=== PATIENT | female | born 1940 | race Hispanic/Latino ===

== ENCOUNTER 2018-09-25 13:02 | Inpatient (IN) | payer MEDICARE ==
[~2018-09-25 13:02] MED LIST: Dexamethasone 20 MG/5 ML VIAL ONE; Esmolol 100 MG/10 ML VIAL ONE; Glycopyrrolate 0.2 MG/ML 5 ML SYRINGE ONE; Ketorolac Tromethamine 30 MG/ML VIAL ONE; Lidocaine 1% PF 5 ML VIAL ONE; Ondansetron PF 4 MG/2 ML Vial ONE; PHENYLEPHRINE-NS 100 MCG/ML 10 ML SYRINGE ONE; PROPOFOL 200 MG/20 ML VIAL ONE; Rocuronium Bromide 10 MG/ML (10ML VIAL) ONE; Succinylcholine Chloride 20 MG/ML 10 ml SYRINGE FS ONE; ePHEDrine 50 MG/ML VIAL ONE
--- NOTE | 2018-09-25 18:32 | HP ---
HISTORY OF PRESENT ILLNESS: Aixa Teixeira is a 77-year-old female, who lives with her in [place]. The patient for the past 2 days has experienced abdominal distention, nausea, vomiting, _obstipation and no flatus. Her abdomen became distended and she had somewhat pains and cramps that she presented to [facility] today, where she underwent evaluation and revealing hemoglobin of 12 and white count 9.8. Sodium 136, potassium 4.1, BUN 16, and creatinine 1.05. Liver function tests normal. She underwent a CAT scan of the abdomen and pelvis , revealing diffuse lymphadenopathy 1.3 to 1.6 cm with large transverse colon mass with proximal colonic dilatation up to 10 to 12 cm. She was evaluated by Findings were suspicious for an apple-core malignancy in the transverse colon with associated extramural spread and lymphadenopathy. The patient does have a history of lymphoma, having been treated in the past, but has not seen her oncologist in more than 2 to 3 years. She was told she is in remission. She reports having had a colonoscopy 5 years ago that was normal. She is otherwise healthy. In treating her lymphoma, she underwent a cardiac stress test many years ago that was normal. She is asymptomatic from a cardiac standpoint. The patient is a retired secretary administrative assistant in [employer] and she lives in [place] as noted above. MEDICATIONS: Levothyroxine 112 mcg a day. ALLERGIES: TRAMADOL AND PENICILLIN, RASH. SOCIAL HISTORY: Alcohol and tobacco, none. PAST SURGICAL HISTORY: Hemithyroidectomy for benign disease, hysterectomy without oophorectomy, tonsillectomy, colonoscopy 5 years ago, MediPort placement and removal right and left side. PAST MEDICAL HISTORY: Treatment for lymphoma in 1997 diagnosed, remission since 2003. Last saw her oncologist more than 2 years ago, not since. REVIEW OF SYSTEMS: 10-point noncontributory. PHYSICAL EXAMINATION: VITAL SIGNS: Weight 53 kg, blood pressure 137/70, respirations 16, temperature 98.3 degrees, pulse 110. HEAD, EARS, EYES, NOSE, AND THROAT: Unremarkable. LUNGS: Clear to auscultation. CARDIAC: Regular rate and rhythm. No murmur or gallop. ABDOMEN: Soft, mild tenderness, distention, tympany. No rebound. No peritoneal signs. Hyperactive bowel sounds. EXTREMITIES: Unremarkable. No ankle edema. LYMPHATICS: No lymphadenopathy at neck, axillae, or groins. BREASTS: Without masses. AXILLA: Without masses. EXTREMITIES: Without edema. LABORATORY DATA: As noted above. CEA level obtained this hospitalization 39. ASSESSMENT AND PLAN: 1. Review of her CAT scan reveals findings consistent with the radiology report. She has a mid transverse colon obstruction with a large mass. We would recommend laparotomy, resection, and possible ileostomy, although unlikely, we will plan anastomosis. Risks of infection, bleeding, reoperation, anastomotic leakage were discussed. She understands the risks and benefits and consents. 2. History of lymphoma. 3. Colonoscopy 5 years ago. 4. Elevated CEA level. Job ID: [id number] [facility]
[2018-09-25] MEDS ORDERED: Fentanyl 250 MCG/5 ML VIAL ONE (19:34)
[2018-09-25] MEDS ORDERED: metroNIDAZOLE 500 MG/100 ML BAG ONE (19:47)
[2018-09-25] MEDS ORDERED: Ketorolac Tromethamine 30 MG/ML VIAL ONE (19:47)
[2018-09-25] MEDS ORDERED: Levofloxacin 500 mg/D5W 100 ml Premix Bag ONE (19:47)
[2018-09-25] MEDS ORDERED: hydrALAZINE 20 MG/ML VIAL SLOW IVP PRN (21:40)
[2018-09-25] MEDS ORDERED: Ondansetron PF 4 MG/2 ML Vial IVP PRN ×2 (21:40→21:51)
[2018-09-25] MEDS ORDERED: Promethazine HCl 25 MG/ML VIAL ONE (21:46)
[2018-09-25] MEDS ORDERED: Zolpidem Tartrate 5 MG TAB PO PRN (21:51)
[2018-09-25] MEDS ORDERED: diphenhydrAMINE 25 MG CAP PO PRN (21:51)
[2018-09-25] MEDS ORDERED: diphenhydrAMINE 50 MG/ML VIAL IVP PRN (21:51)
[2018-09-25] MEDS ORDERED: Naloxone HCl 0.4 mg/ml Vial IV PRN (21:51)
[2018-09-25] MEDS ORDERED: fentaNYL Citrate/PF 2,000 MCG in Sodium Chloride 0.9% 60 ML IV PRN (21:51)
[2018-09-25] MEDS ORDERED: Ondansetron HCl/PF 4 MG/2 ML Vial IVP PRN (21:51)
[2018-09-25] MEDS ORDERED: diphenhydrAMINE 50 MG/ML VIAL IM PRN (21:51)
[2018-09-25] MEDS ORDERED: Promethazine HCl 25 MG/ML VIAL SLOW IVP PRN (21:51)
[2018-09-25] MEDS ORDERED: Promethazine HCl 25 MG/ML VIAL IM PRN ×2 (21:51)
[2018-09-25] MEDS ORDERED: Ketorolac Tromethamine 30 MG/ML VIAL IVP PRN (21:51)
[2018-09-25] MEDS ORDERED: Communication Order-Pharmacy FS SCH (22:00)
[2018-09-25] MEDS ORDERED: Scopolamine 1.5 mg/72 hour Patch TD SCH (22:00)
[2018-09-25] MEDS: Acetaminophen 1,000 MG in Premix Bag 1 BAG IVPB SCH (23:45)
[2018-09-25] MEDS: Ketorolac Tromethamine 30 MG/ML VIAL IVP SCH (23:46)
[2018-09-25] MEDS: D5 1/2 NS w/20 mEq KCL 1,000 ML IV SCH (23:46)
[2018-09-26 00:35] VITALS: BMI 19.8
--- NOTE | 2018-09-26 02:19 | OP ---
DATE OF PROCEDURE: 09/25/2018 PREOPERATIVE DIAGNOSES: Obstructing malignant cancer, mid transverse colon with lyn metastasis, history of lymphoma, elevated CEA level. POSTOPERATIVE DIAGNOSES: Obstructing malignant cancer, mid transverse colon with lyn metastasis, history of lymphoma, elevated CEA level. PROCEDURES PERFORMED: Exploratory laparotomy, extended right colon resection with primary ileo-distal transverse colon anastomosis, Stapler technique, lyn metastasis in the middle colic and extended tumor mass in the omentum, adherent to T4. ANESTHESIA: General. ESTIMATED BLOOD LOSS: 200 mL. DESCRIPTION OF PROCEDURE: The patient was taken to the operating room where under general anesthesia, abdomen was prepared with ChloraPrep and draped in routine fashion. Tavarez catheter was placed at the beginning of procedure and left in place. Midline incision was made and carried down through the skin and subcutaneous tissue about the midline. There was an umbilical hernia, which was taken down through the hernia sac and omentum. Right colon was mobilized as well as the cecum and terminal ileum using cautery. The right colon was markedly dilated and there were some hemorrhagic ischemic changes in the cecum. There was no perforation. There was free fluid in the abdominal cavity from the obstructive process. There was a large tumor mass in the mid transverse colon adherent to adjacent omentum. Adjacent omentum resected en bloc using the LigaSure to free this from the gastrocolic ligament leaving the attached omentum adherent to the tumor mass. Right colon was mobilized. The terminal ileum mobilized. The terminal ileum at approximately 8 cm from the ileocecal valve was divided with a SALEEM stapler. Mesentery divided with a LigaSure down to the ileocolic pedicle, which was divided with a clamp and ligated with 2-0 silk tie and the other end divided with the LigaSure. Serial dissection cephalad, kept the duodenum free of harm as it was mobilized. The hepatic flexure was mobilized, freeing it from the gallbladder. Once this mesentery was divided with the LigaSure up to the middle colic vessels, there was adjacent lyn tissue. This was carefully dissected and nodes freed and the pedicle clamped with a clamp and ligated with 2-0 silk ties and the transverse colon removed after dividing the transverse colon beyond the tumor mass and the distal half of the transverse colon with a SALEEM stapler. The ileocolic anastomosis created with 4 fires of SALEEM blue load stapler. Mesenteric defect was closed with 3-0 silk and anastomosis palpated. Good hemostasis noted. Abdominal cavity irrigated. Gloves and gowns were changed after the anastomosis and the abdominal wall protected during the resection. Sponge and instrument counts were correct and no obvious residual tumor mass noted except some firmness in the retroperitoneum. The Seprafilm was applied between the viscera and the abdominal wall, and the fascia approximated with #2 PDS. Skin and subcutaneous tissues irrigated. Skin approximated with sebas and Prevena dressing applied. Job ID: [id number]
[2018-09-26] MEDS: Ketorolac Tromethamine 30 MG/ML VIAL IVP SCH ×3 (05:27→18:08)
[2018-09-26] MEDS: Acetaminophen 1,000 MG in Premix Bag 1 BAG IVPB SCH ×3 (05:27→18:09)
[2018-09-26 05:28] LABS: #Monocytes 1.3 thou/uL (0.11-0.59); #Neutrophils 13.2 thou/uL (1.40-6.50); %Lymphocytes 6.3 % (21.0-51.0); %Monocytes 8.5 % (0.0-10.0); %Neutrophils 85.1 % (42.0-75.0); Hemoglobin 9.9 g/dL (12.0-16.0); Mean Corpuscular HGB CONC 31.8 g/dL (32.0-36.0); Mean Corpuscular Hemoglobin 27.8 pg (27.0-31.0); Mean Corpuscular Volume 87.3 fL (78.0-98.0); Mean Platelet Volume 7.9 fL (7.4-10.4); Platelet Count 257 thou/uL (130-400); RBC Distribution Width 13.6 % (11.5-14.5); Red Blood Cell (RBC) Count 3.55 mill/uL (4.20-5.40); White Blood Cell (WBC) Count 15.5 thou/uL (4.8-10.8)
[2018-09-26 05:48] LABS: Anion Gap 11 mmol/L (10-20); BUN (Urea Nitrogen) 21 mg/dL (9.8-20.1); Calc. Creatinine Clearance 37 mL/min (70-130); Calcium 7.6 mg/dL (7.8-10.44); Carbon Dioxide 24 mmol/L (23-31); Chloride 104 mmol/L (98-107); Estimated GFR-MDRD 49; Glucose 198 mg/dL (83-110); Potassium 5.1 mmol/L (3.5-5.1); Sodium 134 mmol/L (136-145)
[2018-09-26] MEDS: Famotidine 20 MG TAB PO SCH ×2 (08:55→20:57)
[2018-09-26] MEDS ORDERED: Famotidine/PF 20 mg/2ml Vial SLOW IVP SCH (09:00)
[2018-09-26] MEDS: D5 1/2 NS w/20 mEq KCL 1,000 ML IV SCH (11:00)
[2018-09-26] MEDS ORDERED: D5 1/2 NS w/20 mEq KCL 1,000 ML IV SCH (14:06)
--- NOTE | 2018-09-26 14:20 | PRG ---
DATE OF SERVICE: 09/26/2018 SUBJECTIVE: Ms. Teixeira is doing well today. She has not had any nausea or vomiting. She is tolerating clear liquids. OBJECTIVE: VITAL SIGNS: Temperature 98 degrees, pulse 75, respiratory rate 20, and blood pressure 109/70. LUNGS: Clear to auscultation. CARDIAC: Regular rate and rhythm without murmur, rub, or gallop. ABDOMEN: Soft, nontender. Surgical wounds look good. Prevena suction device in place over the laparotomy incision. Kihei intact. Skin closed. LABORATORY DATA: This morning, her white count is 15, hemoglobin 9.9. Sodium 134, potassium 5.1, BUN 21, and creatinine 1.08. Tavarez has been removed. She is due to void. ASSESSMENT AND PLAN: T4 transverse colon cancer, obstructive, status post right colectomy with anastomosis. She will slowly advance her diet to full liquids today, regular diet tomorrow. If she is doing well, she could be discharged home over the weekend. Prevena dressing can be removed at the time of discharge. She should follow up in my office next week to discuss Pathology report and we will arrange Oncology appointment on the same day of that visit. Dr. Chew is covering the weekend. The patient's sister and brother were present and findings intraoperatively and preoperative CEA level of 39 discussed with the family. They are aware of the situation. Job ID: [id number]
[2018-09-26] MEDS ORDERED: Enoxaparin Sodium 40 MG/0.4 ML SYRINGE SC SCH (21:00)
[2018-09-27] MEDS: Ketorolac Tromethamine 30 MG/ML VIAL IVP SCH ×3 (00:38→11:58)
[2018-09-27] MEDS ORDERED: Levothyroxine Sodium 100 MCG TAB PO SCH (06:00)
[2018-09-27] MEDS: Acetaminophen/Codeine 30-300mg Tablet PO PRN ×2 (06:12→11:59)
[2018-09-27] MEDS ORDERED: Acetaminophen/Codeine 30-300mg Tablet PO PRN (07:00)
[2018-09-27] MEDS ORDERED: Ibuprofen 600 MG TAB PO PRN (07:00)
[2018-09-27] MEDS: Famotidine 20 MG TAB PO SCH (08:55)
[2018-09-27] MEDS ORDERED: Polyethylene Glycol 3350 17 GM Packet PO SCH (09:00)
--- NOTE | 2018-09-27 09:01 | DIS ---
DATE OF ADMISSION: 09/25/2018 DATE OF DISCHARGE: 09/27/2018 ADMITTING DIAGNOSIS: Colon mass. DISCHARGE DIAGNOSIS: Colon mass. PROCEDURES: Partial colectomy and anastomosis by Leland without complication. CONDITION ON DISCHARGE: Improved. STAFF: Natalio Ha MD HOSPITAL COURSE: On postop day 2, the patient is doing well with tolerating the full liquid diet. She is ambulatory. She has a mild cough, but she has been afebrile. Vital signs are stable. On her abdominal exam, her superficial wound VAC is in place. There is no evidence of wound infection. ASSESSMENT: Doing well, status post extended right colectomy for colon mass. PLAN: Discharged home today. Follow up with Dr. Ha next week. Prescriptions for Tylenol No. 3 is already on the chart. Job ID: [id number]
[2018-09-27] MEDS ORDERED: Diabetic Tussin 200 MG/10 ML UDCUP PO PRN (09:36)
[2018-09-27 12:06] VITALS: BP 100/52; TEMP 97.9
== END 2018-09-27 15:11 | disposition home or self-care (01) | DRG 330 ==
LOC: ERS 13:02 → SDC/OP 19:05 → SURG A 22:18
PROVIDERS: ADMIT Specialist; ATTEND Specialist
PROC: 0DTF0ZZ Resection of Right Large Intestine, Open Approach (ICD-10-PCS; principal; 2018-09-25)
PROC: 07BB0ZX Excision of Mesenteric Lymphatic, Open Approach, Diagnostic (ICD-10-PCS; 2018-09-25)
DX: C18.4 Malignant neoplasm of transverse colon (principal); C77.2 Secondary and unspecified malignant neoplasm of intra-abdominal lymph nodes; Z85.72 Personal history of non-Hodgkin lymphomas; R97.0 Elevated carcinoembryonic antigen [CEA]; K42.9 Umbilical hernia without obstruction or gangrene; E03.9 Hypothyroidism, unspecified; Z88.0 Allergy status to penicillin; Z88.8 Allergy status to other drugs, medicaments and biological substances
CPT/HCPCS: 36415; 36416; 80048; 82378; 85025; 88309; 93005; 96360; 96361; J0131; J1100; J1650; J1885; J1956; J2001; J2405; J2550; J2704; J3010; J3490; J7050

== ENCOUNTER 2018-10-16 09:26 | Outpatient (CLI) | payer MEDICARE ==
--- NOTE | 2018-10-16 11:26 | PET ---
Exam: PET CT skull to mid thigh COMPARISON: CT abdomen/pelvis 09/25/2018 HISTORY: Colon cancer TECHNIQUE: A PET/CT was performed from the skull to the mid thigh after administration of 12.5 millic uries of F-18 FDG. Evaluation was performed on a [employer] workstation. FINDINGS: NECK: There is a focal area of hypermetabolic activity in the left lobe of the thyroid without CT cor relate. Max SUV value is 3.6. There is a metabolic lymph node in the left paratracheal region just in ferior to the left thyroid lobe with a maximum SUV value of 2.3. CHEST: There are normal-sized metabolic left axillary lymph nodes with a maximum SUV value of 1.7. No areas of intrathoracic hypermetabolic activity ABDOMEN/PELVIS: No areas of hypermetabolic activity SKELETON: No areas of hypermetabolic activity CT images used for attenuation correction show post surgical changes from right hemicolectomy.. Ather osclerotic calcification are seen in the aorta. IMPRESSION: 1. There is no evidence of intra-abdominal/pelvic metastatic disease or residual disease 2. Hypermetabolic activity is seen in the left thyroid lobe. A nonemergent thyroid ultrasound is leonor mmended for further evaluation. 3. Nonspecific metabolic but not hypermetabolic activity in a left paratracheal lymph node and left a xillary lymph nodes.
== END 2018-10-16 09:27 | disposition home or self-care (01) ==
LOC: PET 09:26
PROVIDERS: ATTEND Internal Medicine Hematology & Oncology
DX: C18.9 Malignant neoplasm of colon, unspecified (principal); R93.2 Abnormal findings on diagnostic imaging of liver and biliary tract
CPT/HCPCS: 78815; A9552

== ENCOUNTER 2018-10-28 10:29 | Day surgery (SDC) | payer MEDICARE ==
[2018-10-27 13:54] VITALS: BMI 19.7
[2018-10-28] MEDS ORDERED: Lidocaine 2% PF 5 ML VIAL ONE (12:14)
[2018-10-28] MEDS ORDERED: Bupivacaine HCl 0.5%/Epinephrine 1:200,000/PF 30 ml Vial ONE (12:14)
[2018-10-28] MEDS ORDERED: Levofloxacin 500 mg/D5W 100 ml Premix Bag ONE (12:16)
[2018-10-28] MEDS ORDERED: Fentanyl 100 MCG/2 ML VIAL ONE (12:41)
[2018-10-28] MEDS ORDERED: Sodium Chloride 0.9% 20 ML ONE (13:03)
[2018-10-28] MEDS ORDERED: Lidocaine 1% PF 5 ML VIAL ONE (13:44)
[2018-10-28] MEDS ORDERED: PROPOFOL 200 MG/20 ML VIAL ONE (13:44)
--- NOTE | 2018-10-28 13:44 | RAD ---
Exam: Chest one view HISTORY:Status post Mediport placement Comparison: 09/25/2018 FINDINGS: Cardiac silhouette: Normal Pulmonary vessels: Normal. Costophrenic angles: Clear Aorta: Atherosclerosis and slight elongation LUNGS: Patchy interstitial opacities with a more focal consolidation in the left lower lobe, obscurin g the left hemidiaphragm. Right-sided Mediport catheter with the distal tip projecting over the expected region of the superior vena cava. Pneumothorax: None Osseous abnormalities: None IMPRESSION: 1. Multifocal interstitial opacities with a more focal alveolar opacity in the left lung base. 2. No pneumothorax. Mediport catheter as described above.
--- NOTE | 2018-10-28 17:01 | OP ---
DATE OF PROCEDURE: 10/28/2018 PREOPERATIVE DIAGNOSES: Metastatic colon cancer, needle chemotherapy, antineoplastic access. POSTOPERATIVE DIAGNOSES: Metastatic colon cancer, needle chemotherapy, antineoplastic access. PROCEDURE PERFORMED: Right subclavian vein low-profile MediPort, fluoroscopy used. ANESTHESIA: TIVA, local of 0.5% Marcaine with epinephrine 30 mL mixed with 2% Xylocaine 10 mL. DESCRIPTION OF PROCEDURE: The patient was taken to the operating room where under intravenous sedation, the chest and neck were prepared with ChloraPrep and draped in routine fashion. Through the old scar, right chest trocar catheter was introduced, cannulating the subclavian vein, J-wire threaded, trocar catheter removed. Skin site was enlarged sharply and carried down to the skin and subcutaneous tissue. Subcutaneous pocket was created with blunt and sharp dissection using cautery for hemostasis. Dilator and Peel-Away sheath placed with J-wire in superior vena cava. Dilator and J-wire were removed. Catheter was placed through the Peel-Away sheath. Peel-Away sheath was removed. Catheter was tailored to length with the tip in the superior vena cava. Catheter connected to the MediPort with the connecting device. MediPort was placed in subcutaneous pocket, secured with 2 interrupted sutures of 3-0 Prolene, and subcutaneous tissue was approximated with 3-0 Monocryl, skin with subdermal 4-0 Monocryl, and fluoroscopic final images revealed good port and line placement. MediPort access with a Patel needle, percutaneously aspirated blood and flushed with heparinized saline solution. The patient tolerated the procedure well. Job ID: [id number]
== END 2018-10-28 14:10 | disposition home or self-care (01) ==
LOC: SDC 10:29
PROVIDERS: ATTEND Specialist
PROC: 05H533Z Insertion of Infusion Device into Right Subclavian Vein, Percutaneous Approach (ICD-10-PCS; principal; 2018-10-28)
PROC: B5161ZA Fluoroscopy of Right Subclavian Vein using Low Osmolar Contrast, Guidance (ICD-10-PCS; 2018-10-28)
DX: C18.2 Malignant neoplasm of ascending colon (principal); Z88.0 Allergy status to penicillin; Z88.8 Allergy status to other drugs, medicaments and biological substances; Z79.899 Other long term (current) drug therapy; Z85.79 Personal history of other malignant neoplasms of lymphoid, hematopoietic and related tissues
CPT/HCPCS: 36582; 71045; C1788; J0670; J1642; J1956; J2001; J2704; J3010

== ENCOUNTER 2018-11-24 09:37 | Day surgery (SDC) | payer MEDICARE ==
[2018-11-24] MEDS ORDERED: Sodium Chloride 0.9% 40 ML ONE (09:47)
[2018-11-24 09:59] VITALS: BP 133/66; TEMP 98.8
[2018-11-24] MEDS ORDERED: WATER IVPB SCH ×3 (10:15→10:30)
[2018-11-24] MEDS ORDERED: DEXAMETHASONE IVPB SCH (10:15)
[2018-11-24] MEDS ORDERED: ONDANSETRON HCL IVPB SCH (10:15)
[2018-11-24] MEDS ORDERED: LEUCOVORIN CALCIUM IVPB SCH (10:15)
[2018-11-24] MEDS ORDERED: OXALIPLATIN IVPB SCH (10:15)
[2018-11-24] MEDS ORDERED: SODIUM CHLORIDE 0.9% IVPB SCH ×2 (10:15→10:30)
[2018-11-24] MEDS ORDERED: DEXTROSE 5% IVPB SCH ×3 (10:15→10:30)
[2018-11-24] MEDS ORDERED: BEVACIZUMAB IVPB SCH (10:30)
[2018-11-24] MEDS ORDERED: FLUOROURACIL IVPB SCH (10:30)
== END 2018-11-24 16:32 | disposition home or self-care (01) ==
LOC: ONC/OP 09:37
PROVIDERS: ATTEND Internal Medicine Hematology & Oncology
DX: Z51.11 Encounter for antineoplastic chemotherapy (principal); C18.4 Malignant neoplasm of transverse colon; Z88.0 Allergy status to penicillin; Z88.5 Allergy status to narcotic agent
CPT/HCPCS: 80053; 81001; 82248; 82378; 83615; 84100; 84550; 96367; 96375; 96413; 96415; 96417; J0640; J1100; J2405; J3490; J7050; J7070; J9035; J9190; J9263

== ENCOUNTER 2018-12-08 11:05 | Day surgery (SDC) | payer MEDICARE ==
[~2018-12-08 11:05] MED LIST changes: +BEVACIZUMAB IVPB SCH; +DEXAMETHASONE IVPB SCH; +DEXTROSE 5% IVPB SCH; -Dexamethasone 20 MG/5 ML VIAL ONE; -Esmolol 100 MG/10 ML VIAL ONE; +FLUOROURACIL IVPB SCH; -Glycopyrrolate 0.2 MG/ML 5 ML SYRINGE ONE; -Ketorolac Tromethamine 30 MG/ML VIAL ONE; +LEUCOVORIN CALCIUM IVPB SCH; -Lidocaine 1% PF 5 ML VIAL ONE; +ONDANSETRON HCL IVPB SCH; +OXALIPLATIN IVPB SCH; -Ondansetron PF 4 MG/2 ML Vial ONE; -PHENYLEPHRINE-NS 100 MCG/ML 10 ML SYRINGE ONE; -PROPOFOL 200 MG/20 ML VIAL ONE; -Rocuronium Bromide 10 MG/ML (10ML VIAL) ONE; +SODIUM CHLORIDE 0.9% IVPB SCH; -Succinylcholine Chloride 20 MG/ML 10 ml SYRINGE FS ONE; +WATER IVPB SCH; -ePHEDrine 50 MG/ML VIAL ONE
[2018-12-08 11:36] VITALS: BP 139/76; TEMP 97.9
== END 2018-12-08 16:13 | disposition home or self-care (01) ==
LOC: ONC/OP 11:05
PROVIDERS: ATTEND Internal Medicine Hematology & Oncology
DX: Z51.11 Encounter for antineoplastic chemotherapy (principal); C18.4 Malignant neoplasm of transverse colon; Z88.0 Allergy status to penicillin; Z88.5 Allergy status to narcotic agent; Z79.899 Other long term (current) drug therapy
CPT/HCPCS: 36415; 82728; 83540; 83550; 96367; 96375; 96413; 96415; 96416; 96417; J0640; J1100; J2405; J3490; J7050; J7070; J9035; J9190; J9263

== ENCOUNTER 2018-12-22 10:19 | Day surgery (SDC) | payer MEDICARE ==
[~2018-12-22 10:19] MED LIST changes: -BEVACIZUMAB IVPB SCH; -DEXAMETHASONE IVPB SCH; +Dexamethasone Sod Phosphate 10 MG, Ondansetron 2MG/ML MDV 15 MG in Sodium Chloride 0.9%... IVPB SCH; -FLUOROURACIL IVPB SCH; -LEUCOVORIN CALCIUM IVPB SCH; -ONDANSETRON HCL IVPB SCH; -SODIUM CHLORIDE 0.9% IVPB SCH
[2018-12-22] MEDS ORDERED: SODIUM CHLORIDE 0.9% IVPB SCH (10:30)
[2018-12-22] MEDS ORDERED: WATER IVPB SCH (10:30)
[2018-12-22] MEDS ORDERED: FLUOROURACIL IVPB SCH (10:30)
[2018-12-22] MEDS ORDERED: DEXTROSE 5% IVPB SCH (10:30)
[2018-12-22] MEDS ORDERED: BEVACIZUMAB IVPB SCH (10:30)
[2018-12-22 10:43] VITALS: BP 128/65; TEMP 97.9
[2018-12-22] MEDS ORDERED: Sodium Chloride 0.9% 20 ML ONE (10:53)
[2018-12-22] MEDS: WATER IVPB SCH ×2 (11:10→13:45)
[2018-12-22] MEDS: LEUCOVORIN CALCIUM IVPB SCH ×2 (11:10→13:45)
[2018-12-22] MEDS: DEXTROSE 5% IVPB SCH ×2 (11:10→13:45)
== END 2018-12-22 15:21 | disposition home or self-care (01) ==
LOC: ONC/OP 10:19
PROVIDERS: ATTEND Internal Medicine Hematology & Oncology
DX: Z51.11 Encounter for antineoplastic chemotherapy (principal); C18.4 Malignant neoplasm of transverse colon; Z88.0 Allergy status to penicillin; Z88.5 Allergy status to narcotic agent; Z79.899 Other long term (current) drug therapy
CPT/HCPCS: 96375; 96413; 96415; 96416; 96417; J0640; J1100; J2405; J3490; J7050; J7070; J9035; J9190; J9263

== ENCOUNTER 2019-01-12 12:37 | Day surgery (SDC) | payer MEDICARE ==
[~2019-01-12 12:37] MED LIST changes: +BEVACIZUMAB IVPB SCH; +FLUOROURACIL IVPB SCH; +LEUCOVORIN CALCIUM IVPB SCH; +SODIUM CHLORIDE 0.9% IVPB SCH
[2019-01-12] MEDS ORDERED: Sodium Chloride 0.9% 20 ML ONE (12:44)
[2019-01-12 16:53] VITALS: BP 148/70; TEMP 97.9
== END 2019-01-12 17:02 | disposition home or self-care (01) ==
LOC: ONC/OP 12:37
PROVIDERS: ATTEND Internal Medicine Hematology & Oncology
DX: Z51.11 Encounter for antineoplastic chemotherapy (principal); C18.4 Malignant neoplasm of transverse colon; D50.0 Iron deficiency anemia secondary to blood loss (chronic); Z88.0 Allergy status to penicillin; Z88.5 Allergy status to narcotic agent
CPT/HCPCS: 36415; 80053; 82248; 82378; 83615; 84100; 84550; 96367; 96375; 96413; 96415; 96417; J0640; J1100; J2405; J3490; J7070; J9035; J9190; J9263

== ENCOUNTER 2019-01-26 09:43 | Day surgery (SDC) | payer MEDICARE ==
[2019-01-26 09:55] VITALS: BP 135/64; TEMP 98.8
[2019-01-26] MEDS ORDERED: Sodium Chloride 0.9% 20 ML ONE (10:01)
== END 2019-01-26 14:47 | disposition home or self-care (01) ==
LOC: ONC/OP 09:43
PROVIDERS: ATTEND Internal Medicine Hematology & Oncology
DX: Z51.11 Encounter for antineoplastic chemotherapy (principal); C18.4 Malignant neoplasm of transverse colon; Z88.0 Allergy status to penicillin; Z88.5 Allergy status to narcotic agent
CPT/HCPCS: 96366; 96375; 96413; 96415; 96417; J0640; J1100; J2405; J3490; J7070; J9035; J9190; J9263

== ENCOUNTER 2019-02-09 10:16 | Day surgery (SDC) | payer MEDICARE ==
[2019-02-09] MEDS ORDERED: WATER IVPB SCH (11:30)
[2019-02-09] MEDS ORDERED: OXALIPLATIN IVPB SCH (11:30)
[2019-02-09] MEDS ORDERED: DEXTROSE 5% IVPB SCH (11:30)
[2019-02-09] MEDS ORDERED: Sodium Chloride 0.9% 20 ML ONE (11:33)
[2019-02-09 15:29] VITALS: BP 166/77; TEMP 97.4
== END 2019-02-09 15:42 | disposition home or self-care (01) ==
LOC: ONC/OP 10:16
PROVIDERS: ATTEND Internal Medicine Hematology & Oncology
DX: Z51.11 Encounter for antineoplastic chemotherapy (principal); C18.4 Malignant neoplasm of transverse colon; D50.0 Iron deficiency anemia secondary to blood loss (chronic); Z88.0 Allergy status to penicillin; Z88.5 Allergy status to narcotic agent
CPT/HCPCS: 36415; 81001; 82378; 96367; 96375; 96413; 96415; 96416; 96417; J0640; J1100; J2405; J3490; J7070; J9035; J9190; J9263

== ENCOUNTER 2019-02-23 10:14 | Day surgery (SDC) | payer MEDICARE ==
[2019-02-23] MEDS ORDERED: Sodium Chloride 0.9% 20 ML ONE (11:13)
== END 2019-02-23 16:16 | disposition home or self-care (01) ==
LOC: ONC/OP 10:14
PROVIDERS: ATTEND Internal Medicine Hematology & Oncology
DX: Z51.11 Encounter for antineoplastic chemotherapy (principal); C18.4 Malignant neoplasm of transverse colon; D50.0 Iron deficiency anemia secondary to blood loss (chronic); Z88.0 Allergy status to penicillin; Z88.5 Allergy status to narcotic agent
CPT/HCPCS: 96367; 96375; 96413; 96415; 96417; J0640; J1100; J2405; J3490; J7070; J9035; J9190; J9263

== ENCOUNTER 2019-02-25 11:52 | Outpatient (CLI) | payer MEDICARE, OTHER ==
[2019-02-25] MEDS ORDERED: Iopamidol 370 76% 100 ML VIAL ONE (13:57)
--- NOTE | 2019-02-25 15:40 | CT ---
Exam: Chest CT with contrast Abdomen CT with contrast Pelvic CT with contrast HISTORY: Transverse colon neoplasm. Correlation: Pet imaging 10/16/2018 COMPARISON: 09/25/2018 FINDINGS: Chest CT: Mediastinum: No mass, or hematoma. There is a small amount of fluid adjacent to the aortic knob/aorti c arch. There is interval increase in size of a prevascular lymph node currently measuring 1.7 x 1.3 cm (previously measuring 0.7 x 0.[address] used for attenuation correction from pet imaging) . Aorta: Atherosclerosis. Normal caliber. Tortuosity of the descending thoracic aorta. Heart: Normal heart size. No significant pericardial fluid. Trachea and central bronchi: Patent Pleural spaces: No significant pleural fluid Right lung: Increased interstitial reticulonodular opacities likely representing chronic change. No c onsolidation. 3 mm nodule in the posterior right upper lobe, adjacent to the major fissure. Left lung:Increased interstitial reticulonodular opacities likely representing chronic change. No mas s, or consolidation. Focal infiltrate in the lingula. Pneumothorax: None Abdomen CT: Gallbladder: Unremarkable Portal vein: Patent Liver: Appropriate enhancement. Spleen: Appropriate enhancement Pancreas: Appropriate enhancement Adrenal glands: Appropriate enhancement Lymphadenopathy: There is increased soft tissue density in the left and right periaortic region, dionicio lar to previous examination. Periaortic lymph nodes cannot be excluded. Kidneys: Symmetric enhancement. No obstructive uropathy. Mesentery: There are stable nonspecific mildly enlarged mesenteric lymph nodes. These lymph nodes citlali ear to be similar to the previous PET scan. Lymph nodes noted on CT from 09/25/2018 are not evident, likely due to previous bowel resection. Alimentary canal: Limited evaluation due to technique. Gastric mucosa is unremarkable. Multiple [place] l caliber small bowel loops. There is a right hemicolectomy. No evidence of colon obstruction. Pelvis CT: Surgically absent uterus. Unremarkable urinary bladder. No pelvic mass, lymphadenopathy, free air or free fluid Redemonstration of nonspecific mesenteric lymph nodes which can be further assessed with PET imaging. Osseous structures:Multiple compression fractures of the thoracic and lumbar spine, presumed to be os teoporotic. IMPRESSION: 1. Interval increase in size of a prevascular lymph node. Finding is worrisome for lymph node metasta ses. Consider repeat PET imaging. 2. Stable increased soft tissue density in the periaortic region. 3. Nonspecific mesenteric lymph nodes. Lymph nodes can be further assessed with PET imaging. Transcribed Date/Time: 02/25/2019 3:04 PM
== END 2019-02-25 11:53 | disposition home or self-care (01) ==
LOC: CT 11:52
PROVIDERS: ATTEND Internal Medicine Hematology & Oncology
DX: C18.4 Malignant neoplasm of transverse colon (principal); D50.0 Iron deficiency anemia secondary to blood loss (chronic)
CPT/HCPCS: 71260; 74177; 82565; Q9967

== ENCOUNTER 2019-03-11 12:35 | Day surgery (SDC) | payer MEDICARE, OTHER ==
[~2019-03-11 12:35] MED LIST changes: -FLUOROURACIL IVPB SCH
[2019-03-11] MEDS ORDERED: Pegfilgrastim Onpro 6 MG/0.6 ML SQ SCH (13:00)
[2019-03-11 13:31] VITALS: BP 143/75; TEMP 98.5
[2019-03-11] MEDS: WATER IVPB SCH ×2 (13:49→15:06)
[2019-03-11] MEDS: DEXTROSE 5% IVPB SCH ×2 (13:49→15:06)
[2019-03-11] MEDS: FLUOROURACIL IVPB SCH ×2 (13:49→15:06)
== END 2019-03-11 17:06 | disposition home or self-care (01) ==
LOC: ONC/OP 12:35
PROVIDERS: ATTEND Internal Medicine Hematology & Oncology
DX: Z51.11 Encounter for antineoplastic chemotherapy (principal); C18.4 Malignant neoplasm of transverse colon; D50.0 Iron deficiency anemia secondary to blood loss (chronic); Z88.0 Allergy status to penicillin; Z88.5 Allergy status to narcotic agent
CPT/HCPCS: 36415; 80053; 82248; 82378; 83615; 84100; 84550; 96367; 96375; 96377; 96413; 96415; 96417; J0640; J1100; J2405; J2505; J3490; J7070; J9035; J9190; J9263

== ENCOUNTER 2019-03-13 14:36 | Day surgery (SDC) | payer MEDICARE, OTHER ==
[~2019-03-13 14:36] MED LIST changes: -BEVACIZUMAB IVPB SCH; -DEXTROSE 5% IVPB SCH; -Dexamethasone Sod Phosphate 10 MG, Ondansetron 2MG/ML MDV 15 MG in Sodium Chloride 0.9%... IVPB SCH; -LEUCOVORIN CALCIUM IVPB SCH; -OXALIPLATIN IVPB SCH; +Pegfilgrastim Onpro 6 MG/0.6 ML SQ SCH; -SODIUM CHLORIDE 0.9% IVPB SCH; -WATER IVPB SCH
== END 2019-03-13 15:30 | disposition home or self-care (01) ==
LOC: ONC/OP 14:36
PROVIDERS: ATTEND Internal Medicine Hematology & Oncology
DX: Z51.11 Encounter for antineoplastic chemotherapy (principal); C18.4 Malignant neoplasm of transverse colon; D50.0 Iron deficiency anemia secondary to blood loss (chronic); Z88.0 Allergy status to penicillin; Z88.5 Allergy status to narcotic agent
CPT/HCPCS: 96377; J2505

== ENCOUNTER 2019-03-23 10:40 | Day surgery (SDC) | payer MEDICARE ==
[~2019-03-23 10:40] MED LIST changes: +BEVACIZUMAB IVPB SCH; +DEXTROSE 5% IVPB SCH; +Dexamethasone Sod Phosphate 10 MG, Ondansetron 2MG/ML MDV 15 MG in Sodium Chloride 0.9%... IVPB SCH; +FLUOROURACIL IVPB SCH; +LEUCOVORIN CALCIUM IVPB SCH; +OXALIPLATIN IVPB SCH; -Pegfilgrastim Onpro 6 MG/0.6 ML SQ SCH; +SODIUM CHLORIDE 0.9% IVPB SCH; +WATER IVPB SCH
[2019-03-23] MEDS ORDERED: Sodium Chloride 0.9% 20 ML ONE (10:45)
[2019-03-23 12:11] VITALS: BP 122/58; TEMP 97.9
== END 2019-03-23 15:32 | disposition home or self-care (01) ==
LOC: ONC/OP 10:40
PROVIDERS: ATTEND Internal Medicine Hematology & Oncology
DX: Z51.11 Encounter for antineoplastic chemotherapy (principal); C18.4 Malignant neoplasm of transverse colon; D50.0 Iron deficiency anemia secondary to blood loss (chronic); Z88.0 Allergy status to penicillin; Z88.5 Allergy status to narcotic agent
CPT/HCPCS: 96367; 96375; 96413; 96415; 96416; 96417; J1100; J2405; J3490; J7070; J9035; J9190; J9263

== ENCOUNTER 2019-04-06 11:38 | Day surgery (SDC) | payer MEDICARE, OTHER ==
[2019-04-06 12:44] VITALS: BP 167/75; TEMP 97.9
== END 2019-04-06 15:54 | disposition home or self-care (01) ==
LOC: ONC/OP 11:38
PROVIDERS: ATTEND Internal Medicine Hematology & Oncology
DX: Z51.11 Encounter for antineoplastic chemotherapy (principal); C18.4 Malignant neoplasm of transverse colon; Z88.0 Allergy status to penicillin; Z88.5 Allergy status to narcotic agent
CPT/HCPCS: 96367; 96375; 96413; 96415; 96416; 96417; J0640; J1100; J2405; J3490; J7070; J9035; J9190; J9263

== ENCOUNTER 2019-04-09 12:53 | Day surgery (SDC) | payer MEDICARE, OTHER ==
[~2019-04-09 12:53] MED LIST changes: -BEVACIZUMAB IVPB SCH; -DEXTROSE 5% IVPB SCH; -Dexamethasone Sod Phosphate 10 MG, Ondansetron 2MG/ML MDV 15 MG in Sodium Chloride 0.9%... IVPB SCH; -FLUOROURACIL IVPB SCH; -LEUCOVORIN CALCIUM IVPB SCH; -OXALIPLATIN IVPB SCH; +PEGFILGRASTIM-JMDB 6 MG/0.6 ML SYRINGE SQ SCH; +Pegfilgrastim Onpro 6 MG/0.6 ML SQ SCH; -SODIUM CHLORIDE 0.9% IVPB SCH; -WATER IVPB SCH
[2019-04-09 13:39] VITALS: BP 136/68; TEMP 98.7
== END 2019-04-09 13:39 | disposition home or self-care (01) ==
LOC: ONC/OP 12:53
PROVIDERS: ATTEND Internal Medicine Hematology & Oncology
DX: Z51.11 Encounter for antineoplastic chemotherapy (principal); C18.4 Malignant neoplasm of transverse colon; Z88.0 Allergy status to penicillin; Z88.5 Allergy status to narcotic agent
CPT/HCPCS: 96372; 96377; J2505; Q5108

== ENCOUNTER 2019-04-20 10:05 | Day surgery (SDC) | payer MEDICARE, OTHER ==
[~2019-04-20 10:05] MED LIST changes: +BEVACIZUMAB IVPB SCH; +DEXTROSE 5% IVPB SCH; +Dexamethasone Sod Phosphate 10 MG, Ondansetron 2MG/ML MDV 15 MG in Sodium Chloride 0.9%... IVPB SCH; +FLUOROURACIL IVPB SCH; +LEUCOVORIN CALCIUM IVPB SCH; +OXALIPLATIN IVPB SCH; -PEGFILGRASTIM-JMDB 6 MG/0.6 ML SYRINGE SQ SCH; -Pegfilgrastim Onpro 6 MG/0.6 ML SQ SCH; +SODIUM CHLORIDE 0.9% IVPB SCH; +WATER IVPB SCH
[2019-04-20] MEDS ORDERED: Sodium Chloride 0.9% 20 ML ONE (11:04)
[2019-04-20 16:05] VITALS: BP 127/67; TEMP 98.7
== END 2019-04-20 16:14 | disposition home or self-care (01) ==
LOC: ONC/OP 10:05
PROVIDERS: ATTEND Internal Medicine Hematology & Oncology
DX: Z51.11 Encounter for antineoplastic chemotherapy (principal); C18.4 Malignant neoplasm of transverse colon; Z88.0 Allergy status to penicillin; Z88.5 Allergy status to narcotic agent
CPT/HCPCS: 96367; 96375; 96413; 96415; 96417; J0640; J1100; J2405; J3490; J7070; J9035; J9190; J9263

== ENCOUNTER → 2019-04-23 | Day surgery (SDC) | payer MEDICARE, OTHER ==
[~2019-04-23] MED LIST changes: -BEVACIZUMAB IVPB SCH; -DEXTROSE 5% IVPB SCH; -Dexamethasone Sod Phosphate 10 MG, Ondansetron 2MG/ML MDV 15 MG in Sodium Chloride 0.9%... IVPB SCH; -FLUOROURACIL IVPB SCH; -LEUCOVORIN CALCIUM IVPB SCH; -OXALIPLATIN IVPB SCH; +PEGFILGRASTIM-JMDB 6 MG/0.6 ML SYRINGE ONE; +PEGFILGRASTIM-JMDB 6 MG/0.6 ML SYRINGE SQ SCH; -SODIUM CHLORIDE 0.9% IVPB SCH; -WATER IVPB SCH
[2019-04-23 13:07] VITALS: BP 133/62; TEMP 98.4
== END ==
LOC: ONC/OP 13:00
PROVIDERS: ATTEND Internal Medicine Hematology & Oncology
DX: Z51.11 Encounter for antineoplastic chemotherapy (principal); C18.4 Malignant neoplasm of transverse colon; D50.0 Iron deficiency anemia secondary to blood loss (chronic); Z88.0 Allergy status to penicillin; Z88.5 Allergy status to narcotic agent
CPT/HCPCS: 96372; Q5108

== ENCOUNTER → 2019-05-04 | Day surgery (SDC) | payer MEDICARE, OTHER ==
[~2019-05-04] MED LIST changes: +BEVACIZUMAB IVPB SCH; +DEXTROSE 5% IVPB SCH; +Dexamethasone Sod Phosphate 10 MG, Ondansetron 2MG/ML MDV 15 MG in Sodium Chloride 0.9%... IVPB SCH; +FLUOROURACIL IVPB SCH; +LEUCOVORIN CALCIUM IVPB SCH; +OXALIPLATIN IVPB SCH; -PEGFILGRASTIM-JMDB 6 MG/0.6 ML SYRINGE ONE; -PEGFILGRASTIM-JMDB 6 MG/0.6 ML SYRINGE SQ SCH; +SODIUM CHLORIDE 0.9% IVPB SCH; +Sodium Chloride 0.9% 20 ML ONE; +WATER IVPB SCH
== END ==
LOC: ONC/OP 12:04
PROVIDERS: ATTEND Internal Medicine Hematology & Oncology
DX: Z51.11 Encounter for antineoplastic chemotherapy (principal); C18.4 Malignant neoplasm of transverse colon; D50.0 Iron deficiency anemia secondary to blood loss (chronic); Z88.0 Allergy status to penicillin; Z88.5 Allergy status to narcotic agent
CPT/HCPCS: 36415; 80053; 81001; 82248; 82378; 83615; 84100; 84439; 84443; 84550; 96367; 96375; 96413; 96415; 96416; 96417; J0640; J1100; J2405; J3490; J7070; J9035; J9190; J9263

== ENCOUNTER 2019-05-15 09:10 | Outpatient (CLI) | payer MEDICARE, OTHER ==
--- NOTE | 2019-05-15 10:42 | PET ---
EXAM: PET CT skull to mid thigh COMPARISON: 10/16/[address] abdomen/pelvis 02/25/2019 HISTORY: Malignant neoplasm of the transverse colon TECHNIQUE: A PET/CT was performed from the skull to the mid thigh after administration of 10.4 millic uries of F-18 FDG. Evaluation was performed on a [employer] workstation. FINDINGS: NECK: There is a stable area of hypermetabolic activity within the left thyroid lobe. No other areas of hypermetabolic activity CHEST: There are areas of nodularity in the posterior aspect of the right upper lobe with a tree-in-b ud configuration. There is an area of nodularity in the lingula measuring 1.6 cm in size. None of these areas of nodularity demonstrate hypermetabolic activity. The previously seen areas of metabolic activity in the left axilla and paratracheal regions are no longer hypermetabolic. ABDOMEN/PELVIS: No areas of hypermetabolic activity SKELETON: No areas of hypermetabolic activity CT images used for attenuation correction show atherosclerotic calcifications in the aorta. There is a Mediport with its tip in the superior vena cava.. IMPRESSION: 1. No evidence of residual disease 2. Stable hypermetabolic activity in the left thyroid lobe. A thyroid ultrasound is recommended for f urther evaluation.
== END 2019-05-15 09:11 | disposition home or self-care (01) ==
LOC: PET 09:10
PROVIDERS: ATTEND Internal Medicine Hematology & Oncology
DX: C18.4 Malignant neoplasm of transverse colon (principal)
CPT/HCPCS: 78815; A9552

== ENCOUNTER 2019-05-18 11:55 | Day surgery (SDC) | payer MEDICARE, OTHER ==
[~2019-05-18 11:55] MED LIST changes: -Sodium Chloride 0.9% 20 ML ONE
[2019-05-18] MEDS ORDERED: Sodium Chloride 0.9% 20 ML ONE (12:02)
[2019-05-18 12:35] VITALS: BP 148/70; TEMP 98.4
== END 2019-05-18 15:03 | disposition home or self-care (01) ==
LOC: ONC/OP 11:55
PROVIDERS: ATTEND Internal Medicine Hematology & Oncology
DX: Z51.11 Encounter for antineoplastic chemotherapy (principal); C18.4 Malignant neoplasm of transverse colon; D50.0 Iron deficiency anemia secondary to blood loss (chronic); Z88.0 Allergy status to penicillin; Z88.5 Allergy status to narcotic agent
CPT/HCPCS: 36415; 80053; 81001; 82248; 82378; 83615; 84100; 84550; 96367; 96375; 96413; 96417; J0640; J1100; J2405; J3490; J9035; J9190

== ENCOUNTER 2019-06-15 12:23 | Day surgery (SDC) | payer MEDICARE, OTHER ==
[~2019-06-15 12:23] MED LIST changes: -OXALIPLATIN IVPB SCH
[2019-06-15] MEDS ORDERED: Sodium Chloride 0.9% 20 ML ONE (12:24)
[2019-06-15 13:04] VITALS: BP 136/62; TEMP 98.4
== END 2019-06-15 15:44 | disposition home or self-care (01) ==
LOC: ONC/OP 12:23
PROVIDERS: ATTEND Internal Medicine Hematology & Oncology
DX: Z51.11 Encounter for antineoplastic chemotherapy (principal); C18.4 Malignant neoplasm of transverse colon; Z88.0 Allergy status to penicillin; Z88.5 Allergy status to narcotic agent
CPT/HCPCS: 36415; 80053; 81001; 82248; 82378; 83615; 84100; 84550; 96367; 96375; 96413; 96417; J0640; J1100; J2405; J3490; J9035; J9190

== ENCOUNTER 2019-06-19 13:07 | Day surgery (SDC) | payer MEDICARE, OTHER ==
[~2019-06-19 13:07] MED LIST changes: -BEVACIZUMAB IVPB SCH; -DEXTROSE 5% IVPB SCH; -Dexamethasone Sod Phosphate 10 MG, Ondansetron 2MG/ML MDV 15 MG in Sodium Chloride 0.9%... IVPB SCH; -FLUOROURACIL IVPB SCH; -LEUCOVORIN CALCIUM IVPB SCH; +PEGFILGRASTIM-JMDB 6 MG/0.6 ML SYRINGE SQ SCH; -SODIUM CHLORIDE 0.9% IVPB SCH; -WATER IVPB SCH
[2019-06-19 13:16] VITALS: BP 168/77; TEMP 97.6
[2019-06-19] MEDS ORDERED: PEGFILGRASTIM-JMDB 6 MG/0.6 ML SYRINGE SQ SCH (16:00)
== END 2019-06-19 16:07 | disposition home or self-care (01) ==
LOC: ONC/OP 13:07
PROVIDERS: ATTEND Internal Medicine Hematology & Oncology
DX: Z51.11 Encounter for antineoplastic chemotherapy (principal); C18.4 Malignant neoplasm of transverse colon; D50.0 Iron deficiency anemia secondary to blood loss (chronic); Z88.0 Allergy status to penicillin; Z88.5 Allergy status to narcotic agent
CPT/HCPCS: 96372; Q5108

== ENCOUNTER → 2019-07-06 | Day surgery (SDC) | payer MEDICARE, OTHER ==
[~2019-07-06] MED LIST changes: +BEVACIZUMAB IVPB SCH; +DEXTROSE 5% IVPB SCH; +Dexamethasone Sod Phosphate 10 MG, Ondansetron 2MG/ML MDV 15 MG in Sodium Chloride 0.9%... IVPB SCH; +FLUOROURACIL IVPB SCH; +LEUCOVORIN CALCIUM IVPB SCH; -PEGFILGRASTIM-JMDB 6 MG/0.6 ML SYRINGE SQ SCH; +SODIUM CHLORIDE 0.9% IVPB SCH; +WATER IVPB SCH
[2019-07-06 11:41] VITALS: BP 133/62; TEMP 98.7
== END ==
LOC: ONC/OP 10:51
PROVIDERS: ATTEND Internal Medicine Hematology & Oncology
DX: Z51.11 Encounter for antineoplastic chemotherapy (principal); C18.4 Malignant neoplasm of transverse colon; D50.0 Iron deficiency anemia secondary to blood loss (chronic); Z88.0 Allergy status to penicillin; Z88.5 Allergy status to narcotic agent
CPT/HCPCS: 80053; 82248; 82378; 83615; 84100; 84550; 96366; 96375; 96413; 96416; 96417; J0640; J1100; J2405; J3490; J9035; J9190

== ENCOUNTER 2019-07-20 10:08 | Day surgery (SDC) | payer MEDICARE, OTHER ==
[2019-07-20] MEDS ORDERED: Sodium Chloride 0.9% 20 ML ONE (10:43)
== END 2019-07-20 14:12 | disposition home or self-care (01) ==
LOC: ONC/OP 10:08
PROVIDERS: ATTEND Internal Medicine Hematology & Oncology
DX: Z51.11 Encounter for antineoplastic chemotherapy (principal); C18.4 Malignant neoplasm of transverse colon; D50.0 Iron deficiency anemia secondary to blood loss (chronic); Z88.0 Allergy status to penicillin; Z88.5 Allergy status to narcotic agent
CPT/HCPCS: 80053; 81001; 82248; 82378; 83615; 84100; 84550; 96366; 96375; 96413; 96416; 96417; J0640; J1100; J2405; J3490; J9035; J9190

== ENCOUNTER 2019-08-03 09:55 | Day surgery (SDC) | payer MEDICARE, OTHER ==
[~2019-08-03 09:55] MED LIST changes: -Dexamethasone Sod Phosphate 10 MG, Ondansetron 2MG/ML MDV 15 MG in Sodium Chloride 0.9%... IVPB SCH
[2019-08-03] MEDS ORDERED: Sodium Chloride 0.9% 20 ML ONE (10:08)
[2019-08-03] MEDS: Dexamethasone Sod Phosphate 10 MG, Ondansetron 2MG/ML MDV 15 MG in Sodium Chloride 0.9%... IVPB SCH ×2 (10:40→11:31)
[2019-08-03 13:39] VITALS: BP 147/67; TEMP 98.4
== END 2019-08-03 13:39 | disposition home or self-care (01) ==
LOC: ONC/OP 09:55
PROVIDERS: ATTEND Internal Medicine Hematology & Oncology
DX: Z51.11 Encounter for antineoplastic chemotherapy (principal); C18.4 Malignant neoplasm of transverse colon; Z88.0 Allergy status to penicillin; Z88.5 Allergy status to narcotic agent
CPT/HCPCS: 80053; 82248; 82378; 83615; 84100; 84550; 96366; 96375; 96413; 96416; 96417; J0640; J1100; J2405; J3490; J9035; J9190

== ENCOUNTER 2019-08-14 09:33 | Outpatient (CLI) | payer MEDICARE, OTHER ==
--- NOTE | 2019-08-14 15:47 | PET ---
Radionucleotide PET scan with CT attenuation correction HISTORY: Malignant neoplasm of the transverse colon. Restaging. COMPARISON: 05/15/2019 and a 27/07/2018. FINDINGS: Physiologic uptake of radiotracer throughout the enteric system and along each urinary trac t. Focal area of vertically oriented uptake involving the left thyroid lobe shows maximum SUV 4.2, stable compared to the previous exam. No new areas of hypermetabolic activity are apparent. Prevascul ar lymph node is unchanged in size without abnormal uptake. Patchy and nodular areas of parenchymal infiltrate within each lung, most pronounced at the periphery of the lingula left upper lobe are unch anged in appearance without hypermetabolic uptake. Postoperative changes of the bowel are apparent. No abnormal uptake is associated with the periaortic soft tissue density with the nonenlarged mediastinal lymph nodes. IMPRESSION: Stable hypermetabolic abnormality involving the left thyroid lobe. Please consider furthe r clinical evaluation and imaging with dedicated thyroid sonogram. No evidence of recurrent or metastatic disease.
== END 2019-08-14 09:34 | disposition home or self-care (01) ==
LOC: PET 09:33
PROVIDERS: ATTEND Internal Medicine Hematology & Oncology
DX: C18.4 Malignant neoplasm of transverse colon (principal); R94.8 Abnormal results of function studies of other organs and systems
CPT/HCPCS: 78815; A9552

== ENCOUNTER 2019-08-17 10:41 | Day surgery (SDC) | payer MEDICARE, OTHER ==
[~2019-08-17 10:41] MED LIST changes: +Dexamethasone Sod Phosphate 10 MG, Ondansetron 2MG/ML MDV 15 MG in Sodium Chloride 0.9%... IVPB SCH; +Sodium Chloride 0.9% 20 ML ONE
[2019-08-17 11:27] VITALS: BP 152/68; TEMP 97.6
== END 2019-08-17 15:25 | disposition home or self-care (01) ==
LOC: ONC/OP 10:41
PROVIDERS: ATTEND Internal Medicine Hematology & Oncology
DX: Z51.11 Encounter for antineoplastic chemotherapy (principal); C18.4 Malignant neoplasm of transverse colon; D50.0 Iron deficiency anemia secondary to blood loss (chronic); Z88.0 Allergy status to penicillin; Z88.5 Allergy status to narcotic agent
CPT/HCPCS: 80053; 81001; 82248; 82378; 83615; 84100; 84550; 96367; 96375; 96413; 96417; J0640; J1100; J2405; J3490; J9035; J9190

== ENCOUNTER 2019-08-19 13:51 | Outpatient (CLI) | payer MEDICARE, OTHER ==
--- NOTE | 2019-08-19 14:26 | ULT ---
Exam: Thyroid ultrasound HISTORY: Abnormality on recent PET scan. FINDINGS: Right thyroid lobe is surgically absent. Thyroid isthmus measures 0.2 cm. Left thyroid lobe measures 1.3 x 1.5 x 3.2 cm. Thyroid nodules: Left thyroid lobe: Three separate solid nodules in the right thyroid lobe measuring 0.5, 0.6, and 0.5 cm in maximum dimension. No evidence of a dominant solid nodule IMPRESSION: Three separate solid subcentimeter nodules in the right thyroid lobe. TI-RADS Level TR3, mildly suspicious. 1 year follow-up imaging. Transcribed Date/Time: 08/19/2019 2:37 PM
== END 2019-08-19 13:52 | disposition home or self-care (01) ==
LOC: BICULT 13:51
PROVIDERS: ATTEND Internal Medicine Hematology & Oncology
DX: R93.7 Abnormal findings on diagnostic imaging of other parts of musculoskeletal system (principal); E04.2 Nontoxic multinodular goiter
CPT/HCPCS: 76536

== ENCOUNTER 2019-08-31 10:07 | Day surgery (SDC) | payer MEDICARE, OTHER ==
[~2019-08-31 10:07] MED LIST changes: -Sodium Chloride 0.9% 20 ML ONE
[2019-08-31 10:37] VITALS: BP 134/73; TEMP 97.8
== END 2019-08-31 12:34 | disposition home or self-care (01) ==
LOC: ONC/OP 10:07
PROVIDERS: ATTEND Internal Medicine Hematology & Oncology
DX: Z51.11 Encounter for antineoplastic chemotherapy (principal); C18.4 Malignant neoplasm of transverse colon; D50.0 Iron deficiency anemia secondary to blood loss (chronic); Z88.0 Allergy status to penicillin; Z88.5 Allergy status to narcotic agent
CPT/HCPCS: 36415; 80053; 82248; 82378; 83615; 84100; 84550; 96367; 96375; 96413; 96417; J0640; J1100; J2405; J3490; J9035; J9190

== ENCOUNTER 2019-09-14 10:41 | Day surgery (SDC) | payer MEDICARE, OTHER ==
[2019-09-14 14:52] VITALS: BP 116/59; TEMP 98.4
== END 2019-09-14 14:56 | disposition home or self-care (01) ==
LOC: ONC/OP 10:41
PROVIDERS: ATTEND Internal Medicine Hematology & Oncology
DX: Z51.11 Encounter for antineoplastic chemotherapy (principal); C18.4 Malignant neoplasm of transverse colon; D50.0 Iron deficiency anemia secondary to blood loss (chronic); Z88.0 Allergy status to penicillin; Z88.5 Allergy status to narcotic agent
CPT/HCPCS: 80053; 81001; 82248; 82378; 83615; 84100; 84550; 96367; 96376; 96413; 96416; 96417; J0640; J1100; J2405; J3490; J9035; J9190

== ENCOUNTER 2019-09-28 09:33 | Day surgery (SDC) | payer MEDICARE, OTHER ==
[~2019-09-28 09:33] MED LIST changes: -Dexamethasone Sod Phosphate 10 MG, Ondansetron 2MG/ML MDV 15 MG in Sodium Chloride 0.9%... IVPB SCH; +Ondansetron 2MG/ML MDV 15 MG, Dexamethasone Sod Phosphate 10 MG in Sodium Chloride 0.9%... IVP SCH
[2019-09-28] MEDS ORDERED: Sodium Chloride 0.9% 20 ML ONE (09:38)
[2019-09-28 09:48] VITALS: BP 126/57; TEMP 98.6
== END 2019-09-28 11:57 | disposition home or self-care (01) ==
LOC: ONC/OP 09:33
PROVIDERS: ATTEND Internal Medicine Hematology & Oncology
DX: Z51.11 Encounter for antineoplastic chemotherapy (principal); C18.4 Malignant neoplasm of transverse colon; Z88.0 Allergy status to penicillin; Z88.5 Allergy status to narcotic agent
CPT/HCPCS: 36415; 80053; 82248; 82378; 83615; 84100; 84550; 96367; 96375; 96413; 96416; 96417; J0640; J1100; J2405; J3490; J9035; J9190

== ENCOUNTER 2019-10-08 10:38 | Outpatient (CLI) | payer MEDICARE, OTHER ==
--- NOTE | 2019-10-08 16:17 | PET ---
Radionucleotide scan with CT attenuation correction HISTORY: Malignant neoplasm of the transverse colon. Restaging. COMPARISON: 08/14/2019. FINDINGS: Physiologic uptake of radiotracer throughout the enteric system and along each urinary trac t. Hypermetabolic focus in the left thyroid lobe, maximum SUV 4.7 (previously 4.2) is stable. Within the central abdomen/mesentery, a new ill-defined area of soft tissue density having the appear ance of the cluster of lymph nodes is now present. On the axial images, the poorly defined lesion is 1.9 cm x 1.2 cm diameters, maximum SUV 4.5. An oval masslike area of adenopathy along the left internal iliac chain is 4.0 cm x 3.1 cm greatest d iameters, max SUV 4.1. Immediately superior to it, a nonenlarged/borderline enlarged lymph node shows max SUV 3.1. No other areas of abnormal uptake are apparent. The nondiagnostic CT attenuation correction images sh ow tiny nonspecific predominantly subpleural lung nodules and areas of scarring to be stable. Nonenlarged prevascular mediastinal lymph node remains non-hypermetabolic. There is prominent calcifi cation throughout the arterial structures. Postoperative changes of the colon are evident. IMPRESSION : Worsening of disease. Newly hypermetabolic and enlarged lesions, presumably adenopathy, within the me sentery and along the left internal iliac chain. Stable hypermetabolic focus within the left thyroid lobe.
== END 2019-10-08 10:39 | disposition home or self-care (01) ==
LOC: PET 10:38
PROVIDERS: ATTEND Internal Medicine Hematology & Oncology
DX: C18.4 Malignant neoplasm of transverse colon (principal)
CPT/HCPCS: 78815; A9552

== ENCOUNTER 2019-10-12 10:36 | Day surgery (SDC) | payer MEDICARE, OTHER ==
[2019-10-12] MEDS ORDERED: Sodium Chloride 0.9% 20 ML ONE (10:41)
[2019-10-12 10:51] VITALS: BP 161/82; TEMP 98.4
== END 2019-10-12 13:25 | disposition home or self-care (01) ==
LOC: ONC/OP 10:36
PROVIDERS: ATTEND Internal Medicine Hematology & Oncology
DX: Z51.11 Encounter for antineoplastic chemotherapy (principal); C18.4 Malignant neoplasm of transverse colon; Z88.0 Allergy status to penicillin; Z88.5 Allergy status to narcotic agent
CPT/HCPCS: 36415; 80053; 81001; 82248; 82378; 83615; 84100; 84550; 96367; 96375; 96413; 96416; 96417; J0640; J1100; J2405; J3490; J9035; J9190

== ENCOUNTER 2019-10-26 10:02 | Day surgery (SDC) | payer MEDICARE, OTHER ==
[~2019-10-26 10:02] MED LIST changes: +Atropine Sulfate 0.25 MG in Sodium Chloride 0.9% 50 ML IVPB SCH; -DEXTROSE 5% IVPB SCH; +Dexamethasone 20 MG in Sodium Chloride 0.9% 50 ML IVPB SCH; +IRINOTECAN IVPB SCH; -LEUCOVORIN CALCIUM IVPB SCH; +Leucovorin Calcium 50 MG in Sodium Chloride 0.9% 500 ML IVPB SCH; -Ondansetron 2MG/ML MDV 15 MG, Dexamethasone Sod Phosphate 10 MG in Sodium Chloride 0.9%... IVP SCH; +PALONOSETRON HCL 0.05 MG/ML 5 ML VIAL IVP SCH; +Palonosetron HCl 0.25 MG in Sodium Chloride 0.9% 50 ML IVPB SCH; -WATER IVPB SCH
[2019-10-26] MEDS ORDERED: Sodium Chloride 0.9% 20 ML ONE (10:12)
[2019-10-26 15:05] VITALS: BP 133/70; TEMP 97.8
== END 2019-10-26 15:05 | disposition home or self-care (01) ==
LOC: ONC/OP 10:02
PROVIDERS: ATTEND Internal Medicine Hematology & Oncology
DX: Z51.11 Encounter for antineoplastic chemotherapy (principal); C18.4 Malignant neoplasm of transverse colon; D50.0 Iron deficiency anemia secondary to blood loss (chronic); Z88.0 Allergy status to penicillin; Z88.5 Allergy status to narcotic agent
CPT/HCPCS: 36415; 80053; 82248; 82378; 83615; 84100; 84550; 96367; 96375; 96413; 96416; 96417; J0461; J0640; J1100; J2469; J3490; J7030; J9035; J9190; J9206

== ENCOUNTER → 2019-11-09 | Day surgery (SDC) | payer MEDICARE, OTHER ==
[~2019-11-09] MED LIST changes: -Dexamethasone 20 MG in Sodium Chloride 0.9% 50 ML IVPB SCH; +Dexamethasone Sod Phosphate 20 MG in Sodium Chloride 0.9% 50 ML IVPB SCH; -PALONOSETRON HCL 0.05 MG/ML 5 ML VIAL IVP SCH; +Sodium Chloride 0.9% 20 ML ONE
[2019-11-09 10:01] VITALS: BP 123/73; TEMP 97.6
== END ==
LOC: ONC/OP 09:55
PROVIDERS: ATTEND Internal Medicine Hematology & Oncology
DX: Z51.11 Encounter for antineoplastic chemotherapy (principal); C18.4 Malignant neoplasm of transverse colon; D50.0 Iron deficiency anemia secondary to blood loss (chronic); Z88.0 Allergy status to penicillin; Z88.5 Allergy status to narcotic agent
CPT/HCPCS: 36415; 80053; 82248; 82378; 83615; 84100; 84550; 96367; 96375; 96413; 96416; 96417; J0461; J0640; J1100; J2469; J3490; J7030; J9035; J9190; J9206

== ENCOUNTER 2019-11-23 09:43 | Day surgery (SDC) | payer MEDICARE, OTHER ==
[~2019-11-23 09:43] MED LIST changes: -Sodium Chloride 0.9% 20 ML ONE
[2019-11-23] MEDS ORDERED: Sodium Chloride 0.9% 20 ML ONE (09:56)
[2019-11-23 14:17] VITALS: BP 93/51; TEMP 98.1
== END 2019-11-23 14:45 | disposition home or self-care (01) ==
LOC: ONC/OP 09:43
PROVIDERS: ATTEND Internal Medicine Hematology & Oncology
DX: Z51.11 Encounter for antineoplastic chemotherapy (principal); C18.4 Malignant neoplasm of transverse colon; D50.0 Iron deficiency anemia secondary to blood loss (chronic); Z88.0 Allergy status to penicillin; Z88.5 Allergy status to narcotic agent
CPT/HCPCS: 36415; 80053; 82248; 82378; 83615; 84100; 84550; 96367; 96375; 96413; 96415; 96416; 96417; J0461; J0640; J1100; J1642; J2469; J3490; J7030; J9035; J9190; J9206

== ENCOUNTER → 2019-12-07 | Day surgery (SDC) | payer MEDICARE, OTHER ==
[~2019-12-07] MED LIST changes: +Sodium Chloride 0.9% 20 ML ONE
[2019-12-07 10:16] VITALS: BP 123/59; TEMP 98
== END ==
LOC: ONC/OP 10:05
PROVIDERS: ATTEND Internal Medicine Hematology & Oncology
DX: Z51.11 Encounter for antineoplastic chemotherapy (principal); C18.4 Malignant neoplasm of transverse colon; Z88.0 Allergy status to penicillin; Z88.5 Allergy status to narcotic agent
CPT/HCPCS: 36415; 80053; 82248; 82378; 82728; 83540; 83550; 83615; 84100; 84550; 96367; 96375; 96413; 96416; 96417; J0461; J0640; J1100; J2469; J3490; J7030; J9035; J9190; J9206

== ENCOUNTER 2019-12-21 09:53 | Day surgery (SDC) | payer MEDICARE, OTHER ==
[~2019-12-21 09:53] MED LIST changes: -Sodium Chloride 0.9% 20 ML ONE
[2019-12-21] MEDS ORDERED: Sodium Chloride 0.9% 20 ML ONE (09:55)
[2019-12-21 10:02] VITALS: BP 141/70; TEMP 98
== END 2019-12-21 14:18 | disposition home or self-care (01) ==
LOC: ONC/OP 09:53
PROVIDERS: ATTEND Internal Medicine Hematology & Oncology
DX: Z51.11 Encounter for antineoplastic chemotherapy (principal); C18.4 Malignant neoplasm of transverse colon; D50.0 Iron deficiency anemia secondary to blood loss (chronic); Z88.0 Allergy status to penicillin; Z88.5 Allergy status to narcotic agent
CPT/HCPCS: 36415; 80053; 82248; 82378; 83615; 84100; 84550; 96367; 96375; 96413; 96415; 96416; 96417; J0461; J0640; J1100; J2469; J3490; J7030; J9035; J9190; J9206

== ENCOUNTER 2020-01-04 09:58 | Day surgery (SDC) | payer MEDICARE, OTHER ==
[2020-01-04] MEDS ORDERED: Sodium Chloride 0.9% 20 ML ONE (10:21)
[2020-01-04 11:50] VITALS: BP 90/49; TEMP 97.9
== END 2020-01-04 16:05 | disposition home or self-care (01) ==
LOC: ONC/OP 09:58
PROVIDERS: ATTEND Internal Medicine Hematology & Oncology
DX: Z51.11 Encounter for antineoplastic chemotherapy (principal); C18.4 Malignant neoplasm of transverse colon; D50.0 Iron deficiency anemia secondary to blood loss (chronic); Z88.0 Allergy status to penicillin; Z88.5 Allergy status to narcotic agent
CPT/HCPCS: 36415; 80053; 82248; 82378; 83615; 84100; 84550; 96367; 96375; 96413; 96416; 96417; J0461; J0640; J1100; J2469; J3490; J7030; J9035; J9190; J9206

== ENCOUNTER 2020-01-14 09:37 | Outpatient (CLI) | payer MEDICARE, OTHER ==
--- NOTE | 2020-01-14 13:39 | PET ---
PET CT: HISTORY: Colon cancer. Malignant neoplasm of transverse colon. Exam requested to evaluate treatment response a nd subsequent management decisions. Patient is currently undergoing chemotherapy. TECHNIQUE: PET scanning with CT attenuation correction is performed from the base of the brain through the proxi mal thighs following the intravenous administration of 10.4 mCi F18-FDG in the right antecubital dexter a. COMPARISON: PET CT dated 10/08/2019. FINDINGS: Continued hypermetabolic focus is noted in the left thyroid lobe with a maximum SUV of 5.7 (previousl y 4.7). No lyn hypermetabolism is seen in the neck, chest, or axilla. There is increased FDG localization i n the mesenteric lymph nodes with a maximum SUV of 3.8 (previously 4.5). There has been interval incr ease in the size of the left-sided pelvic mass/lymphadenopathy noted on the previous exam, which curr ently measures 9.0 x 7.7 cm and has increased FDG uptake with a SUV of 6.2 (previous SUV 4.1). No hypermetabolic pulmonary nodules, liver, adrenal, or skeletal lesions are seen. There is physiologic activity in the GI and tracts, heart, and the visualized portions of the brai n. The CT scan used for attenuation correction demonstrates no evidence of pleural effusions or ascites. IMPRESSION: Interval worsening since 10/08/2019. POS: GRAYSON
== END 2020-01-14 09:38 | disposition home or self-care (01) ==
LOC: PET 09:37
PROVIDERS: ATTEND Internal Medicine Hematology & Oncology
DX: C18.9 Malignant neoplasm of colon, unspecified (principal)
CPT/HCPCS: 78815; A9552

== ENCOUNTER 2020-01-18 09:46 | Day surgery (SDC) | payer MEDICARE, OTHER ==
[2020-01-18 10:15] VITALS: BP 129/58; TEMP 97.8
[2020-01-18] MEDS ORDERED: Sodium Chloride 0.9% 20 ML ONE (10:21)
== END 2020-01-18 15:52 | disposition home or self-care (01) ==
LOC: ONC/OP 09:46
PROVIDERS: ATTEND Internal Medicine Hematology & Oncology
DX: Z51.11 Encounter for antineoplastic chemotherapy (principal); C18.4 Malignant neoplasm of transverse colon; D50.0 Iron deficiency anemia secondary to blood loss (chronic); Z88.1 Allergy status to other antibiotic agents; Z88.0 Allergy status to penicillin; Z88.5 Allergy status to narcotic agent
CPT/HCPCS: 36415; 80053; 82248; 82378; 83615; 84100; 84550; 96367; 96375; 96413; 96416; 96417; J0461; J0640; J1100; J2469; J3490; J7030; J9035; J9190; J9206

== ENCOUNTER 2020-03-15 09:25 | Day surgery (SDC) | payer MEDICARE, OTHER ==
[~2020-03-15 09:25] MED LIST changes: +ADMIXTURE FEE CHEMO IVPB SCH; -Atropine Sulfate 0.25 MG in Sodium Chloride 0.9% 50 ML IVPB SCH; -BEVACIZUMAB IVPB SCH; +CETUXIMAB IVPB SCH; -Dexamethasone Sod Phosphate 20 MG in Sodium Chloride 0.9% 50 ML IVPB SCH; -FLUOROURACIL IVPB SCH; -IRINOTECAN IVPB SCH; -Leucovorin Calcium 50 MG in Sodium Chloride 0.9% 500 ML IVPB SCH; -Palonosetron HCl 0.25 MG in Sodium Chloride 0.9% 50 ML IVPB SCH; -SODIUM CHLORIDE 0.9% IVPB SCH; +diphenhydrAMINE 25 MG in Sodium Chloride 0.9% 50 ML IVPB SCH
[2020-03-15] MEDS ORDERED: Sodium Chloride 0.9% 20 ML ONE (09:29)
[2020-03-15 09:50] VITALS: BP 176/67; TEMP 97.9
== END 2020-03-15 12:11 | disposition home or self-care (01) ==
LOC: ONC/OP 09:25
PROVIDERS: ATTEND Internal Medicine Hematology & Oncology
DX: Z51.12 Encounter for antineoplastic immunotherapy (principal); C18.4 Malignant neoplasm of transverse colon; D50.0 Iron deficiency anemia secondary to blood loss (chronic); Z88.0 Allergy status to penicillin; Z88.1 Allergy status to other antibiotic agents; Z88.5 Allergy status to narcotic agent
CPT/HCPCS: 36415; 80053; 82248; 83615; 83735; 84100; 84550; 96375; 96413; J1200; J1642; J9055

== ENCOUNTER 2020-03-21 10:47 | Day surgery (SDC) | payer MEDICARE ==
[~2020-03-21 10:47] MED LIST changes: +Atropine Sulfate 0.25 MG in Sodium Chloride 0.9% 50 ML IVPB SCH; +Dexamethasone Sod Phosphate 20 MG in Sodium Chloride 0.9% 50 ML IVPB SCH; +IRINOTECAN IVPB SCH; +Palonosetron HCl 0.25 MG in Sodium Chloride 0.9% 50 ML IVPB SCH; +SODIUM CHLORIDE 0.9% IVPB SCH
[2020-03-21] MEDS ORDERED: Sodium Chloride 0.9% 20 ML ONE (10:54)
[2020-03-21 11:39] VITALS: BP 120/59; TEMP 97.7
== END 2020-03-21 15:47 | disposition home or self-care (01) ==
LOC: ONC/OP 10:47
PROVIDERS: ATTEND Internal Medicine Hematology & Oncology
DX: Z51.12 Encounter for antineoplastic immunotherapy (principal); C18.4 Malignant neoplasm of transverse colon; D50.0 Iron deficiency anemia secondary to blood loss (chronic); Z88.1 Allergy status to other antibiotic agents; Z88.0 Allergy status to penicillin; Z88.5 Allergy status to narcotic agent
CPT/HCPCS: 36415; 80053; 82248; 82378; 83615; 83735; 84100; 84550; 96375; 96413; 96417; J0461; J1100; J1200; J1642; J2469; J7030; J9055; J9206

== ENCOUNTER 2020-04-11 09:48 | Day surgery (SDC) | payer MEDICARE ==
[2020-04-11] MEDS: Sodium Chloride 0.9% 20 ML ONE ×2 (10:00→10:58)
[2020-04-11 14:25] VITALS: BP 119/57; TEMP 97.6
== END 2020-04-11 14:26 | disposition home or self-care (01) ==
LOC: ONC/OP 09:48
PROVIDERS: ATTEND Internal Medicine Hematology & Oncology
DX: Z51.12 Encounter for antineoplastic immunotherapy (principal); C18.4 Malignant neoplasm of transverse colon; Z88.0 Allergy status to penicillin; Z88.1 Allergy status to other antibiotic agents; Z88.5 Allergy status to narcotic agent
CPT/HCPCS: 36415; 80053; 82248; 82378; 83615; 84100; 84550; 96375; 96413; 96415; 96417; J0461; J1100; J1200; J1642; J2469; J7030; J9055; J9206

== ENCOUNTER 2020-04-18 09:07 | Day surgery (SDC) | payer MEDICARE ==
[~2020-04-18 09:07] MED LIST changes: -Atropine Sulfate 0.25 MG in Sodium Chloride 0.9% 50 ML IVPB SCH; -Dexamethasone Sod Phosphate 20 MG in Sodium Chloride 0.9% 50 ML IVPB SCH; -IRINOTECAN IVPB SCH; -Palonosetron HCl 0.25 MG in Sodium Chloride 0.9% 50 ML IVPB SCH; -SODIUM CHLORIDE 0.9% IVPB SCH
[2020-04-18] MEDS ORDERED: Sodium Chloride 0.9% 20 ML ONE (09:13)
[2020-04-18 09:31] VITALS: BP 150/73
== END 2020-04-18 11:34 | disposition home or self-care (01) ==
LOC: ONC/OP 09:07
PROVIDERS: ATTEND Internal Medicine Hematology & Oncology
DX: Z51.12 Encounter for antineoplastic immunotherapy (principal); C18.4 Malignant neoplasm of transverse colon; D50.0 Iron deficiency anemia secondary to blood loss (chronic); Z88.0 Allergy status to penicillin; Z88.5 Allergy status to narcotic agent
CPT/HCPCS: 96375; 96413; J1200; J1642; J9055

== ENCOUNTER 2020-05-10 10:04 | Outpatient (CLI) | payer MEDICARE ==
--- NOTE | 2020-05-10 13:52 | PET ---
EXAM: PET/CT HISTORY: 71-year-old female with malignant: Cancer with pulmonary metastatic disease TECHNIQUE: PET scanning with CT attenuation correction was performed from the base of the brain to the proximal thighs following the intravenous administration of 10.3 millicuries [id number]. COMPARISON: Prior CT the abdomen and pelvis dated February 26, 2020, CT PE examination dated February 26, 2020 and a PET/CT dated January 14, 2020. FINDINGS: Biodistribution:The biodistribution for the exam appears acceptable. Head and neck: There is appropriate background activity within the brain. There is a persistent focus of hypermetabolic uptake involving the left thyroid gland measuring 3.59. No additional hypermetabolic nodule or lymphadenopathy is evident. Thorax: There is worsening diffuse reticular nodularity throughout both lungs with mild increased met abolic uptake. The larger nodules demonstrate hypermetabolic uptake. Most prominent is seen within the left upper lobe with a peak activity of 2.81 and a mean activity 2.57. There is a new 1.3 cm righ t paratracheal hypermetabolic lymph node with a peak SUV uptake of 4.42. There is a subcarinal lymph node measuring 1.1 cm with a peak activity of 3.68. There is a right hilar lymph node with a pe ak activity of 3.71. There are numerous left axillary lymph nodes that are enlarged with mild increased uptake with a peak activity 2.18. There is more confluent consolidation within both lower l obes without hypermetabolic uptake and may reflect subsegmental volume loss Abdomen and pelvis: There is expected background activity within the GI and systems.There is been interval enlargement of the centrally hypodense pelvic mass, now measuring 12.8 x 12 cm. There are peripheral areas of hypermetabolic uptake measuring up to 3.2. There is diffuse anasarca that limits in plane resolution. There is mild ascites. There is prominent amount of retained stool. No additional hypermetabolic mass or lymphadenopathy is grossly evident. There are multiple non hypermet abolic, prominent lymph nodes within the inguinal region as well as within the retroperitoneum adjacent to the aorta. Osseous structures and skin: Numerous compression abnormalities of the thoracolumbar spine are stable . There is been interval vertebroplasty change at T9 and T11. No new hypermetabolic skin or osseous lesion is evident. IMPRESSION: Abnormal PET/CT 1. Enlarging centrally hypodense pelvic mass with mass effect on the bladder and colon. 2. Worsening pulmonary metastatic disease. There is bibasilar parenchymal opacity Hospital related to subsegmental volume loss as there is no hypermetabolic uptake. 3. New hypermetabolic malignant lymphadenopathy of the mediastinum, right hilar region and left axill a. 4. Diffuse anasarca
== END 2020-05-10 10:05 | disposition home or self-care (01) ==
LOC: PET 10:04
PROVIDERS: ATTEND Internal Medicine Hematology & Oncology
DX: C18.9 Malignant neoplasm of colon, unspecified (principal); C78.00 Secondary malignant neoplasm of unspecified lung; C77.8 Secondary and unspecified malignant neoplasm of lymph nodes of multiple regions; R60.1 Generalized edema; R19.00 Intra-abdominal and pelvic swelling, mass and lump, unspecified site; R91.8 Other nonspecific abnormal finding of lung field
CPT/HCPCS: 78815; A9552